=== PATIENT | male | born 1975 | race Caucasian/White ===

== ENCOUNTER 2017-05-29 04:04 | Emergency (ER) | payer OTHER ==
[2017-05-29] MEDS ORDERED: PANTOPRAZOLE 40 MG/10 ML VIAL IVP STA (04:24)
[2017-05-29] MEDS ORDERED: SODIUM CHLORIDE 0.9% 1,000 ML IV STA (04:24)
[2017-05-29] MEDS ORDERED: ONDANSETRON 4 MG/2 ML VIAL IVP STA (04:24)
[2017-05-29] MEDS ORDERED: MORPHINE SULFATE 4 MG/ML SYRINGE IVP STA (04:52)
[2017-05-29 05:25] LABS: HCT 41.6 % (39.0-53.0); HGB 14.9 gm/dL (13.0-17.5); MCH 29.1 pg (25.0-35.0); MCHC 35.9 g/dL (31.0-37.0); Mean Platelet Volume 6.8; Platelet Count 188 k/uL (150-450); Prothrombin Time 9.9 sec (9.0-12.0); RBC 5.14 m/uL (4.30-5.90); RDW 11.9 % (11.5-15.5); WBC 4.9 k/uL (3.8-10.6)
[2017-05-29 05:27] LABS: ALT 33 U/L (21-72); AST 27 U/L (17-59); Albumin 4.3 g/dL (3.5-5.0); Alcohol 11 mg/dL; Alkaline Phosphatase 78 U/L (38-126); Anion Gap 13 mmol/L; Blood Urea Nitrogen 16 mg/dL (9-20); Calcium 9.7 mg/dL (8.4-10.2); Carbon Dioxide 26 mmol/L (22-30); Chloride 104 mmol/L (98-107); Glucose 108 mg/dL (74-99); Lipase 80 U/L (23-300); Magnesium 1.8 mg/dL (1.6-2.3); Potassium 3.7 mmol/L (3.5-5.1); Sodium 143 mmol/L (137-145); Total Bilirubin 0.3 mg/dL (0.2-1.3); Total Protein 7.5 g/dL (6.3-8.2)
[2017-05-29 05:31] LABS: Partial Thromboplastin Time 22.3 sec (22.0-30.0)
--- NOTE | 2017-05-29 05:47 | XR ---
EXAM: XR Abdomen 2 Views With XR Chest CLINICAL HISTORY: ITS.REASON XR Reason: Pain TECHNIQUE: Frontal view of the chest, frontal view of the abdomen/pelvis and upright or decubitus view of the abdomen. COMPARISON: No relevant prior studies available. FINDINGS: Lungs: Unremarkable. No consolidation. Pleural space: Unremarkable. No pneumothorax. Heart: Unremarkable. No cardiomegaly. Mediastinum: Unremarkable. Intraperitoneal space: No free air. Gastrointestinal tract: Unremarkable. No dilation. Bones/joints: Unremarkable. IMPRESSION: No acute radiographic findings.
--- NOTE | 2017-05-29 05:54 | ED ---
General Adult HPI - General Chief complaint: GI Bleed Stated complaint: Vomiting/Abdominal Pain Time Seen by Provider: 05/29/17 04:22 Source: patient, RN notes reviewed, old records reviewed Mode of arrival: ambulatory Limitations: no limitations - History of Present Illness Initial comments: This is a 41-year-old male to the ER for evaluation regarding abdominal pain after nausea vomiting. Patient does admit to history of acid reflux, history of irritable bowel disease. Patient has positive nausea vomiting currently. No recent travel history no sick contacts. Patient admits to drinking [employer] of [employer] tonight and then vomiting blood after initial vomiting. No recent travel history no sick contacts. Patient is unable tenderness denies history of excessive drinking, states streaking is an not been normal for him - Related Data Previous Rx's Medication Instructions Recorded Ondansetron Odt [Zofran ODT] 4 mg PO Q8HR PRN #10 tab 05/29/17 Allergies Allergy/AdvReac Type Severity Reaction Status Date / Time No Known Allergies Allergy Verified 05/29/17 04:14 Review of Systems ROS Statement: Those systems with pertinent positive or pertinent negative responses have been documented in the HPI. ROS Other: All systems not noted in ROS Statement are negative. Past Medical History Past Medical History: No Reported History History of Any Multi-Drug Resistant Organisms: None Reported Past Surgical History: No Surgical Hx Reported Past Psychological History: No Psychological Hx Reported Smoking Status: Never smoker Past Alcohol Use History: Occasional Past Drug Use History: None Reported General Exam Limitations: no limitations General appearance: alert, in no apparent distress Head exam: Present: atraumatic, normocephalic, normal inspection Eye exam: Present: normal appearance, PERRL, EOMI. Absent: scleral icterus, conjunctival injection, periorbital swelling ENT exam: Present: normal exam, mucous membranes moist Neck exam: Present: normal inspection. Absent: tenderness, meningismus, lymphadenopathy Respiratory exam: Present: normal lung sounds bilaterally. Absent: respiratory distress, wheezes, rales, rhonchi, stridor Cardiovascular Exam: Present: regular rate, normal rhythm, normal heart sounds. Absent: systolic murmur, diastolic murmur, rubs, gallop, clicks GI/Abdominal exam: Present: soft, normal bowel sounds. Absent: distended, tenderness, guarding, rebound, rigid Extremities exam: Present: normal inspection, full ROM, normal capillary refill. Absent: tenderness, pedal edema, joint swelling, calf tenderness Back exam: Present: normal inspection Neurological exam: Present: alert, oriented X3, CN II-XII intact Psychiatric exam: Present: normal affect, normal mood Skin exam: Present: warm, dry, intact, normal color. Absent: rash Course Vital Signs 05/29/17 04:10 Temperature 97.4 F L Pulse Rate 61 Respiratory 20 Rate Blood Pressure 114/79 O2 Sat by Pulse 98 Oximetry - Reevaluation(s) Reevaluation #1: nausea vomiting and pain much improved, spoke with family regarding hemoglobin likely Elif-Horne, patient feels better can be discharged home Medical Decision Making - Medical Decision Making 29 female the ER with active nausea vomiting after night of drinking. Been vomiting blood after initial vomiting. Patient's vomiting is controlled well at this time, patient can be discharged home - Lab Data Result diagrams: 05/29/17 04:45 05/29/17 04:45 Lab Results 05/29/17 05/29/17 05/29/17 Range/Units 04:45 04:45 04:45 WBC 4.9 (3.8-10.6) k/uL RBC 5.14 (4.30-5.90) m/uL Hgb 14.9 (13.0-17.5) gm/dL Hct 41.6 (39.0-53.0) % MCV 81.0 (80.0-100.0) fL MCH 29.1 (25.0-35.0) pg MCHC 35.9 (31.0-37.0) g/dL RDW 11.9 (11.5-15.5) % Plt Count 188 (150-450) k/uL PT 9.9 (9.0-12.0) sec INR 1.0 (<1.2) APTT 22.3 (22.0-30.0) sec Sodium 143 (137-145) mmol/L Potassium 3.7 (3.5-5.1) mmol/L Chloride 104 (98-107) mmol/L Carbon Dioxide 26 (22-30) mmol/L Anion Gap 13 mmol/L BUN 16 (9-20) mg/dL Creatinine 0.90 (0.66-1.25) mg/dL Est GFR (CKD-EPI)AfAm >90 (>60 ml/min/1.73 sqM) Est GFR (CKD-EPI)NonAf >90 (>60 ml/min/1.73 sqM) Glucose 108 H (74-99) mg/dL Calcium 9.7 (8.4-10.2) mg/dL Magnesium 1.8 (1.6-2.3) mg/dL Total Bilirubin 0.3 (0.2-1.3) mg/dL AST 27 (17-59) U/L ALT 33 (21-72) U/L Alkaline Phosphatase 78 (38-126) U/L Total Protein 7.5 (6.3-8.2) g/dL Albumin 4.3 (3.5-5.0) g/dL Lipase 80 (23-300) U/L Serum Alcohol 11 mg/dL - Radiology Data Radiology results: report reviewed (Chest x-rays negative for acute disease), image reviewed Disposition Clinical Impression: Upper gastrointestinal hemorrhage, Elif-Horne tear, Nausea & vomiting Disposition: HOME SELF-CARE Condition: Good Instructions: Elif-Horne Syndrome (ED) Prescriptions: Ondansetron Odt [Zofran ODT] 4 mg PO Q8HR PRN #10 tab PRN Reason: nausea/vomiting Referrals: Richard Zuniga MD [Primary Care Provider] - 1-2 days
[2017-05-29 06:24] LABS: Band Neutrophils % 1 %; Eosinophils # (M) 0.05 k/uL (0-0.7); Lymphocytes # (M) 1.57 k/uL (1.0-4.8); Monocytes # (M) 0.39 k/uL (0-1.0); Neutrophils % (M) 58 %; Nucleated Red Blood Cells 0 /100 WBC (0-0); Total Cells Counted 100
[2017-05-29 06:26] LABS: Anisocytosis (M) Present
[2017-05-29 06:27] LABS: Poikilocytosis (M) Present
[2017-05-29 06:30] LABS: Large Platelets Present
[2017-05-29 07:01] VITALS: BP 96/53; PULSE 78; RESP 18; TEMP 97.8
== END 2017-05-29 07:01 | disposition home or self-care (01) ==
LOC: EC 04:04
DX: K22.6 Gastro-esophageal laceration-hemorrhage syndrome (principal); R11.2 Nausea with vomiting, unspecified; Z87.19 Personal history of other diseases of the digestive system
CPT/HCPCS: 36415; 86900; 86901; 80053; 83690; 83735; 85025; 85610; 85730; 86850; 80320; 74022; 99285; 96374; 96375 ×2; 96361 ×2; J2270; J2405; C9113